=== PATIENT | male | born 1960 | race Caucasian/White ===

== ENCOUNTER 2017-01-20 13:44 | Inpatient (IN) | payer BC, OTHER ==
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
[2017-01-20] MEDS ORDERED: ACETAMINOPHEN TAB 325 MG TAB PO PRN (21:05)
[2017-01-20] MEDS ORDERED: MAGNESIUM HYDROXIDE 2,400 MG/10 ML CUP PO PRN (21:05)
[2017-01-20] MEDS ORDERED: MAG HYDROX/AL HYDROX/SIMETH 30 ML CUP PO PRN (21:05)
[2017-01-20] MEDS ORDERED: LORazepam 2 MG/ML SYRINGE IM PRN (21:07)
[2017-01-20] MEDS ORDERED: HALOPERIDOL 5 MG TAB PO PRN (21:08)
[2017-01-20] MEDS ORDERED: HALOPERIDOL LACTATE 5 MG/ML 1 ML VIAL IM PRN (21:08)
[2017-01-20] MEDS ORDERED: BENZTROPINE 2 MG/2 ML AMP IM PRN (21:10)
[2017-01-20] MEDS ORDERED: BENZTROPINE MESYLATE 1 MG TAB PO PRN (21:10)
[2017-01-20 21:43] LABS: Appearance,Urine Clear (Clear); Bilirubin,Urine Negative (Negative); Glucose,Urine (UA) 1+ (Negative); Ketones,Urine Negative (Negative); Leukocyte Esterase,Urine Negative (Negative); Nitrite,Urine Negative (Negative); Protein,Urine Negative (Negative); Specific Gravity,Urine 1.009 (1.001-1.035); UA Billing (MACRO vs. MICRO) CHEM; Urobilinogen,Urine <2.0 mg/dL (<2.0)
[2017-01-20] MEDS: METOPROLOL TARTRATE 50 MG TAB PO SCH (21:53)
[2017-01-20] MEDS: NICOTINE 21MG/24HR PATCH TRANSDERM SCH (22:02)
[2017-01-20 22:31] VITALS: BMI 25.2
[2017-01-21] MEDS: METOPROLOL TARTRATE 50 MG TAB PO SCH ×2 (09:03→21:38)
[2017-01-21] MEDS: CITALOPRAM HYDROBROMIDE 20 MG TAB PO SCH (09:03)
[2017-01-21 09:44] LABS: Basophils # (A) 0.1 k/uL (0-0.2); Basophils % (A) 1 %; CH 32.2; CHCM 33.4; Eosinophils # (A) 0.1 k/uL (0-0.7); Eosinophils % (A) 1 %; HCT 49.8 % (39.0-53.0); HDW 2.21; Luc % (Auto) 2; Lymphocytes % (A) 34 %; MCH 31.1 pg (25.0-35.0); MCHC 32.1 g/dL (31.0-37.0); MCV 96.8 fL (80.0-100.0); Mean Platelet Volume 6.4; Monocytes # (A) 0.3 k/uL (0-1.0); Monocytes % (A) 6 %; Neutrophils # (A) 3.3 k/uL (1.3-7.7); Neutrophils % (A) 56 %; RBC 5.15 m/uL (4.30-5.90); RDW 12.6 % (11.5-15.5); WBC 5.9 k/uL (3.8-10.6); WBC (Perox) 5.67
[2017-01-21 10:05] LABS: ALT 34 U/L (21-72); AST 24 U/L (17-59); Alkaline Phosphatase 56 U/L (38-126); Anion Gap 8 mmol/L; Blood Urea Nitrogen 14 mg/dL (9-20); Calcium 9.9 mg/dL (8.4-10.2); Carbon Dioxide 27 mmol/L (22-30); Chloride 105 mmol/L (98-107); Glucose 125 mg/dL (74-99); Non-African American GFR(MDRD) >60 (>60 ml/min/1.73 sqM); Sodium 140 mmol/L (137-145); Total Bilirubin 0.9 mg/dL (0.2-1.3); Total Protein 7.7 g/dL (6.3-8.2)
[2017-01-21] MEDS ORDERED: ALBUTEROL NEBULIZED 2.5 MG/3 ML INHALATION PRN (12:21)
[2017-01-21] MEDS: FAMOTIDINE 20 MG TAB PO SCH (12:52)
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
[2017-01-21] MEDS: ARIPiprazole 10 MG TAB PO SCH (21:39)
[2017-01-21] MEDS: NICOTINE 21MG/24HR PATCH TRANSDERM SCH (21:42)
[2017-01-22] MEDS: METOPROLOL TARTRATE 50 MG TAB PO SCH ×2 (09:26→21:21)
[2017-01-22] MEDS: CITALOPRAM HYDROBROMIDE 20 MG TAB PO SCH (09:26)
[2017-01-22] MEDS: FAMOTIDINE 20 MG TAB PO SCH (09:26)
[2017-01-22] MEDS: NICOTINE 21MG/24HR PATCH TRANSDERM SCH (09:27)
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
[2017-01-22] MEDS: ARIPiprazole 10 MG TAB PO SCH (21:21)
[2017-01-23] MEDS: NICOTINE 21MG/24HR PATCH TRANSDERM SCH (09:47)
[2017-01-23] MEDS: CITALOPRAM HYDROBROMIDE 20 MG TAB PO SCH (09:47)
[2017-01-23] MEDS: METOPROLOL TARTRATE 50 MG TAB PO SCH ×2 (09:47→20:36)
[2017-01-23] MEDS: FAMOTIDINE 20 MG TAB PO SCH (09:47)
[2017-01-23] MEDS: ARIPiprazole 10 MG TAB PO SCH (20:36)
--- NOTE | 2017-01-23 21:56 | PN ---
DATE OF SERVICE: 01/23/2017 CHIEF COMPLAINT: The patient was admitted due to paranoia and suspiciousness. He believed that he was being investigated by any number of people. He had a number of beliefs that were not in touch with reality. He had increasing paranoia over the last 2 weeks. He also reported feeling depressed and anxious. INTERVAL HISTORY: Patient has been doing fair. He had a quiet evening last night. He slept well. Today, he has been up and about. He has attended groups less than 50% of the time. He attended groups today. He gets out on the unit. He has been walking, which he says has been helping reduce stress as well as relieve some of his craving for cigarettes. He has not had any problems with start of Abilify. He says that overall he feels a little calmer and maybe a little clearer in his thinking. He has been cooperative. He has not had change in his general health. He tolerates his psychotropic medications. MENTAL STATUS: Patient sat without restlessness. Eye contact was good. Psychomotor activity was slow. Speech was monotone and soft. He answered questions with brief responses. He talked in a slow, measured way. His affect was blunted. His mood was quiet. He did not appear to be distressed. ASSESSMENT: I will continue the current diagnosis and treatment plan. We will continue to make efforts to engage the patient in individual and group therapeutic activities. Continue psychotropic medications the same, including Celexa 40 mg a day and Abilify 10 mg at bedtime. I reviewed with the patient issues relating to possible acute dystonia or akathisia. He does have Cogentin ordered as a p.r.n. I reviewed use of those medications. At this point, the patient has not had any significant complaints that may relate to those issues. We will continue to focus on stabilization and discharge planning.
[2017-01-24] MEDS: CITALOPRAM HYDROBROMIDE 20 MG TAB PO SCH (09:52)
[2017-01-24] MEDS: FAMOTIDINE 20 MG TAB PO SCH (09:52)
[2017-01-24] MEDS: NICOTINE 21MG/24HR PATCH TRANSDERM SCH (09:52)
[2017-01-24] MEDS: METOPROLOL TARTRATE 50 MG TAB PO SCH ×2 (09:52→21:04)
--- NOTE | 2017-01-24 19:13 | PN ---
DATE OF SERVICE: 01/24/2017 CHIEF COMPLAINT: The patient was admitted due to paranoia and suspiciousness. He had increasing paranoia over the last 2 week. INTERVAL HISTORY: Patient has been doing fairly well. He had a quiet evening last night. He has been attending groups. He said he slept fairly well. He notes that he woke up about 3 in the morning. He read the Bible for a half hour and then was able to fall back to sleep and slept fairly well the rest of the night. He has been up and about today. He continues to attend groups. He has a calm manner. He tends to be reserved. He does not interact too much with others. He seems comfortable in the milieu. He reports that his thoughts are fairly clear. He does not seem to be exhibiting any indications of significant thought disorder. He has not had change in his general health. Patient does note some muscle tension in his left shoulder more in the back, it is not clear that this relates to any dystonia. He tolerates his psychotropic medications. MENTAL STATUS: Patient gave good eye contact. Psychomotor activity was slow. Speech was monotone and soft. He answered questions with direct responses. His thoughts were clear. He was relaxed. His affect was a little constricted, though not significantly so. His mood was even. He was not distressed. There was no indication of thought disorder. ASSESSMENT: I will continue the current diagnosis and treatment plan. We will continue psychotropic medications the same. I did encourage the patient to keep up with his walking and arm movements so he can get some stretching and perhaps relax his shoulder muscles that seemed to be tight. Patient appears to be making progress. I would anticipate discharge fairly soon.
[2017-01-24] MEDS: ARIPiprazole 10 MG TAB PO SCH (21:04)
[2017-01-25] MEDS: FAMOTIDINE 20 MG TAB PO SCH (09:29)
[2017-01-25] MEDS: CITALOPRAM HYDROBROMIDE 20 MG TAB PO SCH (09:29)
[2017-01-25] MEDS: METOPROLOL TARTRATE 50 MG TAB PO SCH ×2 (09:29→20:11)
[2017-01-25] MEDS: NICOTINE 21MG/24HR PATCH TRANSDERM SCH (09:30)
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
[2017-01-26] MEDS: NICOTINE 21MG/24HR PATCH TRANSDERM SCH (09:43)
[2017-01-26] MEDS: FAMOTIDINE 20 MG TAB PO SCH (09:44)
[2017-01-26] MEDS: CITALOPRAM HYDROBROMIDE 20 MG TAB PO SCH (09:44)
[2017-01-26] MEDS: METOPROLOL TARTRATE 50 MG TAB PO SCH ×2 (09:44→21:02)
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
[2017-01-26] MEDS: LORazepam 1 MG TAB PO PRN (21:02)
[2017-01-27] MEDS: FAMOTIDINE 20 MG TAB PO SCH (09:05)
[2017-01-27] MEDS: METOPROLOL TARTRATE 50 MG TAB PO SCH ×2 (09:05→20:51)
[2017-01-27] MEDS: NICOTINE 21MG/24HR PATCH TRANSDERM SCH ×2 (09:05→20:51)
[2017-01-27] MEDS: CITALOPRAM HYDROBROMIDE 20 MG TAB PO SCH (09:05)
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
[2017-01-28] MEDS: NICOTINE 21MG/24HR PATCH TRANSDERM SCH ×2 (10:16→20:00)
[2017-01-28] MEDS: CITALOPRAM HYDROBROMIDE 20 MG TAB PO SCH (10:17)
[2017-01-28] MEDS: METOPROLOL TARTRATE 50 MG TAB PO SCH ×2 (10:17→20:00)
[2017-01-28] MEDS: FAMOTIDINE 20 MG TAB PO SCH (10:17)
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
[2017-01-29] MEDS: METOPROLOL TARTRATE 50 MG TAB PO SCH ×2 (09:10→20:07)
[2017-01-29] MEDS: CITALOPRAM HYDROBROMIDE 20 MG TAB PO SCH (09:10)
[2017-01-29] MEDS: FAMOTIDINE 20 MG TAB PO SCH (09:10)
[2017-01-29] MEDS: ARIPiprazole 15 MG TAB PO SCH (09:11)
--- NOTE | 2017-01-29 13:11 | P.PN ---
Progress Note - Text SUBJECTIVE: I reviewed the medical record, interviewed Mr. Franco and discuss his treatment and treatment plan during team meeting. I explained that we will discharge him after the family meeting and the social workers in the process of coordinating family meeting. He denied feeling unsafe and believes that if he were to return to work he would "not have a problem.". He denies currently feeling threatened by his coworkers. I attempted to engage him in a discussion of other psychotic experiences. He denied having auditory or visual hallucinations. He denied receiving "JOSE messages" but talked about having the ability to "transmit JOSE". He believes that he has an ability to influence the actions and behaviors of other people with his thoughts. He assured me that he only uses his JOSE ho to people that are "bad". He feels less sedated with the lower dose of Abilify. OBJECTIVE: He presented as a casually groomed and dressed 56-year-old male who was pleasant on approach. He maintained eye contact and attended to the interview. He had a right facial expression. He showed no amount of psychomotor activity. His speech was spontaneous with normal rate, rhythm and volume. His affect was blunted but bright, stable and appropriate. He does not appear suspicious. He denied suicidal thoughts or ideation. He denied feeling hopeless, helplessness or worthlessness. He did not ruminate about his ongoing conspiracy theories at work and in the community. He described a special power involving the ability to control others with his thoughts. His thinking was increasing but his associations were coherent and logical. She denied hallucinations and did not appear to be responding to internal stimuli. He received outpatient mental health treatment through [facility]. They have a psychiatrist do not have the ability to administer Abilify Maintenna. ASSESSMENT: He appears much less paranoid than on admission. He continues to paranoid delusional beliefs and overvalued ideas but they do not currently influence his behavior PLAN: Continue inpatient psychiatric hospitalization pending the family meeting. Continue Abilify 15 mg and Celexa 40 mg daily. drawer hardware worker to coordinate aftercare services. Encouraged continued participation in therapeutic groups and activities. Evaluate clinical status response to treatment daily basis.
[2017-01-30] MEDS: METOPROLOL TARTRATE 50 MG TAB PO SCH ×2 (08:44→21:24)
[2017-01-30] MEDS: ARIPiprazole 15 MG TAB PO SCH (08:46)
[2017-01-30] MEDS: FAMOTIDINE 20 MG TAB PO SCH (08:46)
[2017-01-30] MEDS: CITALOPRAM HYDROBROMIDE 20 MG TAB PO SCH (08:46)
[2017-01-30] MEDS: NICOTINE 14MG/24HR PATCH TRANSDERM SCH ×2 (08:47→21:26)
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
[2017-01-30] MEDS: LORazepam 1 MG TAB PO PRN (21:26)
[2017-01-31 07:34] VITALS: RESP 18; TEMP 97.4
[2017-01-31] MEDS: NICOTINE 14MG/24HR PATCH TRANSDERM SCH ×2 (09:00→13:04)
[2017-01-31] MEDS: FAMOTIDINE 20 MG TAB PO SCH (09:01)
[2017-01-31] MEDS: METOPROLOL TARTRATE 50 MG TAB PO SCH ×2 (09:01→20:50)
[2017-01-31] MEDS: CITALOPRAM HYDROBROMIDE 20 MG TAB PO SCH (09:01)
[2017-01-31] MEDS: ARIPiprazole 15 MG TAB PO SCH (09:01)
--- NOTE | 2017-01-31 11:36 | P.PN ---
Progress Note - Text Interval history: The patient is found in group he follows me to an interview room. He reports his mood is better today. He is not feeling as down. He reports he slept well last night staff documented 4 hours however. Appetite stable. He feels he is adjusting to the Abilify and describes having "less cloudiness". He has no questions regarding his medications at this time. 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 Eye contact appropriate speech is spontaneous fluent nonpressured. He reports his mood is better today and he feels less cloudy in terms of thinking. He continues to have some suspicious thinking and believes he is able to perceive other people's thoughts at times. He is reporting no current auditory or visual hallucinations. He demonstrates no verbal or physical aggressiveness. He demonstrates no abnormal involuntary thoughts. He denies having any suicidal or homicidal ideation intent or plan. He maintains a bland affect. He is easily directed and is cooperative. He remains oriented to person place and date. Plan: The patient will continue on his current medication we will monitor him for safety and encourage his continued participation in the milieu. We will allow him more time to acclimate to the current dose of Abilify. Ultimately the dose may need to be raised. Vital signs reviewed.
[2017-01-31] MEDS: NICOTINE 21MG/24HR PATCH TRANSDERM SCH (13:05)
[2017-01-31] MEDS: LORazepam 1 MG TAB PO PRN (20:50)
[2017-02-01 05:40] VITALS: BP 133/76; PULSE 79
[2017-02-01] MEDS: CITALOPRAM HYDROBROMIDE 20 MG TAB PO SCH (10:05)
[2017-02-01] MEDS: ARIPiprazole 15 MG TAB PO SCH (10:05)
[2017-02-01] MEDS: METOPROLOL TARTRATE 50 MG TAB PO SCH (10:06)
[2017-02-01] MEDS: NICOTINE 21MG/24HR PATCH TRANSDERM SCH (10:06)
[2017-02-01] MEDS: FAMOTIDINE 20 MG TAB PO SCH (10:06)
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
== END 2017-02-01 14:03 | disposition home or self-care (01) | DRG 885 ==
LOC: EC 13:44 → 3MHU 21:01
PROVIDERS: ADMIT Psychiatry & Neurology Psychiatry; ATTEND Psychiatry & Neurology Psychiatry
DX: F20.0 Paranoid schizophrenia (principal); F33.9 Major depressive disorder, recurrent, unspecified; I10 Essential (primary) hypertension; F41.1 Generalized anxiety disorder; F17.200 Nicotine dependence, unspecified, uncomplicated; J44.9 Chronic obstructive pulmonary disease, unspecified; Z79.899 Other long term (current) drug therapy; Z81.8 Family history of other mental and behavioral disorders; Z82.49 Family history of ischemic heart disease and other diseases of the circulatory system; Z91.5 Personal history of self-harm
CPT/HCPCS: 80053; 80306; 81003; 82075; 84443; 85025; 99285